=== PATIENT | female | born 1995 | race African-American/Black ===

== ENCOUNTER 2017-05-05 07:36 | Inpatient (IN) | payer BC ==
[~2017-05-05] VITALS: Ht 160 cm; Wt 96.8 kg
--- NOTE | 2017-05-05 08:04 | DIAGNOSTIC IMAGING REPORT ---
CHEST ONE VIEW PORTABLE CLINICAL HISTORY: Sepsis dyspnea COMPARISON STUDY: No previous studies for comparison. FINDINGS: The bones soft tissues and hemidiaphragms are normal. The cardiomediastinal silhouette is normal. The lungs are clear. The pulmonary vasculature is normal. IMPRESSION: Negative chest. The above report was generated using voice recognition software. It may contain grammatical, syntax or spelling errors. Electronically signed by: Brandon Ling M.D. 05/05/2017 8:02 AM Dictated Date/Time: 05/05/2017 8:02 AM
[2017-05-05 08:05] LABS: BASO % 0.2 %; BASO ABS # 0.02 K/uL (0-0.2); COMPLETE YES; EOS % 0.7 %; HEMATOCRIT 33.5 % (37-47); IG% 0.4 %; LYMPH ABS # 1.41 K/uL (1.2-3.4); MEAN CELL VOLUME 86.6 fL (80-100); MEAN CORPUSCULAR HEMOGLOBIN 28.2 pg (25-34); MEAN CORPUSCULAR HGB CONC 32.5 g/dl (32-36); MEAN PLATELET VOLUME 8.8 fL (7.4-10.4); MONO % 7.3 %; NEUT % 74.4 %; PLATELET COUNT 446 K/uL (130-400); RED BLOOD COUNT 3.87 M/uL (4.2-5.4)
[2017-05-05 08:14] LABS: PARTIAL THROMBOPLASTIN RATIO 1.4; PROTHROMBIN TIME (PATIENT) 10.7 SECONDS (9.0-12.0)
[2017-05-05] MEDS ORDERED: ONDANSETRON INJ 2 MG/ML 2 ML VIAL IV STA (08:17)
[2017-05-05] MEDS ORDERED: HYDROmorphone INJ 1 MG/ML SYR IV STA ×2 (08:17→12:27)
[2017-05-05] MEDS ORDERED: SODIUM CHLORIDE 0.9% 1000ML 1,000 ML IV STA ×3 (08:17→09:47)
[2017-05-05] MEDS ORDERED: KETOROLAC TROMETHAMINE 30 MG/ML VIAL IV STA (08:17)
[2017-05-05 08:18] LABS: ISTAT CREATININE 0.4 mg/dl; ISTAT HEMOGLOBIN 11.6 g/dl (12.0-16.0); ISTAT IONIZED CALCIUM 1.13 mmol/l
[2017-05-05 08:18] LABS: ALT/SGPT 23 U/L (12-78); BLOOD UREA NITROGEN 9 mg/dl (7-18); BUN/CREATININE RATIO 19.2 (10-20); CARBON DIOXIDE 28 mmol/L (21-32); CHLORIDE 104 mmol/L (98-107); CREATININE 0.46 mg/dl (0.60-1.20); GLUCOSE 102 mg/dl (70-99); POTASSIUM 4.1 mmol/L (3.5-5.1); SODIUM 137 mmol/L (136-145)
[2017-05-05 08:21] LABS: ALB/GLOB RATIO 0.5 (0.9-2); ALKALINE PHOSPHATASE 106 U/L (45-117); AST/SGOT 20 U/L (15-37)
--- NOTE | 2017-05-05 08:31 | EMERGENCY ROOM VISIT NOTE ---
History Report prepared by Holly: Jackson Bright Under the Supervision of: Dr. Bakari Livingston M.D. First contact with patient: 07:51 Chief Complaint: ABDOMINAL PAIN Stated Complaint: STOMACH HAS BEEN IN PAIN FOR ABOUT 2 WKS History of Present Illness The patient is a 21 year old female who presents to the Emergency Room with complaints of worsening upper abdominal pain beginning two weeks ago. The patient states she thought her discomfort was from cramps because it began when she started being sexually active. She reports her pain has worsened, she became nauseous, and her abdomen has began to harden. The patient notes her LNMP was two weeks ago, and she does not think she is . She denies a history of abdominal surgeries, using tampons, and vaginal discharge. Source of History: patient Onset: two weeks ago Position: abdomen (upper) Timing: worsening Associated Symptoms: + nausea Note: Associated symptoms: abdominal hardening Denies: vaginal discharge Review of Systems See HPI for pertinent positives & negatives. A total of 10 systems reviewed and were otherwise negative. Past Medical & Surgical Medical Problems: (1) Asthma (2) PID (acute pelvic inflammatory disease) Family History Patient reports no known family medical history. Social History Smoking Status: Never Smoker Marital Status: single Housing Status: lives with family Occupation Status: student Current/Historical Medications No Active Prescriptions or Reported Meds Allergies Coded Allergies: No Known Allergies (Unverified , 05/05/17) Physical Exam Vital Signs Date Time Temp Pulse Resp B/P (MAP) Pulse Ox O2 Delivery O2 Flow Rate FiO2 05/05/17 12:24 37.6 89 18 145/72 98 Room Air 05/05/17 11:06 108 05/05/17 10:26 98 Room Air 05/05/17 10:26 101 18 164/68 98 05/05/17 08:49 114 18 164/98 98 Room Air 05/05/17 07:41 38.2 122 17 131/84 97 Room Air Physical Exam GENERAL: Patient is a healthy-appearing well-nourished 21 year old female. HEAD: Normocephalic atraumatic EYES: Ocular movements intact pupils equal and react to light OROPHARYNX mucous membranes are moist no exudates present no erythema or edema present NECK: Supple no nuchal rigidity CHEST: Good equal expansion LUNGS: Clear and equal to auscultation CARDIAC: Normal S1 and S2 ABDOMEN: Soft, distended, diffusely tender, no guarding BACK: No CVA tenderness PELVIC: Cervix was easily friable. Mucus oozing out at the cervical os. EXTREMITIES: No pain upon palpation normal muscle strength in all groups no clubbing cyanosis or edema NEURO: Patient is following commands and answering questions appropriately. Alert and oriented x3 Cranial Nerves 2-12 grossly intact Medical Decision & Procedures ER Provider Diagnostic Interpretation: Radiology results as stated below per my review and radiologist interpretation: CHEST ONE VIEW PORTABLE CLINICAL HISTORY: Sepsis dyspnea COMPARISON STUDY: No previous studies for comparison. FINDINGS: The bones soft tissues and hemidiaphragms are normal. The cardiomediastinal silhouette is normal. The lungs are clear. The pulmonary vasculature is normal. IMPRESSION: Negative chest. The above report was generated using voice recognition software. It may contain grammatical, syntax or spelling errors. Electronically signed by: Brandon Ling M.D. 05/05/2017 8:02 AM Dictated Date/Time: 05/05/2017 8:02 AM ABD/PELVIS IV CONTRAST ONLY CT DOSE: 1045.05 mGycm HISTORY: Pain Pt c/o diffuse abd pain TECHNIQUE: Multiaxial CT images of the abdomen and pelvis were performed following the use of intravenous contrast. A dose lowering technique was utilized adhering to the principles of ALARA. COMPARISON STUDY: None. FINDINGS: Lung bases are clear. The study is severely compromised due to the absence of oral contrast. The appendix cannot be identified in its entirety. Is considered nondiagnostic for potential appendicitis. There are several mildly distended fluid-filled loops of small bowel suggesting either reactive ileus versus enteritis. There is a small amount of free fluid within the pelvic cul-de-sac. Kidneys negative for hydronephrosis. IMPRESSION: 1. Severely compromised exam due to the absence of oral contrast. 2. The appendix is not identified or evaluated diagnostically 3. Is recommended that the study be repeated with oral contrast in an attempt to identify the appendix as an independent structure. 4. Possible generalized nonobstructive enteritis The above report was generated using voice recognition software. It may contain grammatical, syntax or spelling errors. Electronically signed by: Brandon Ling M.D. 05/05/2017 9:27 AM Dictated Date/Time: 05/05/2017 9:13 AM ABD/PELVIS ORAL CONT ONLY CT DOSE: 1023.78 mGy.cm HISTORY: Pain Pt c/o diffuse abd pain TECHNIQUE: Multiaxial CT images of the abdomen and pelvis were performed following the use of oral contrast. A dose lowering technique was utilized adhering to the principles of ALARA. COMPARISON STUDY: Unenhanced 9:06 AM same date FINDINGS: Lung bases remain clear. Liver spleen and pancreas are unremarkable. The appendix is normal. It is posterior to the cecum and shows no significant thickening or periappendiceal infiltrative change. Bowel pattern shows several loops of small bowel consistent with mild fluid-filled distention and subsequent enteritis. Normal kidneys. No evidence for abscess collection or obstruction. Small amount of free fluid within the pelvic cul-de-sac which is most likely physiologic. Bladder is midline. IMPRESSION: 1. Normal appendix. 2. Findings suggesting a mild nonspecific generalized enteritis. 3. No evidence for abscess collection or obstruction. The above report was generated using voice recognition software. It may contain grammatical, syntax or spelling errors. Electronically signed by: Brandon Ling M.D. 05/05/2017 12:28 PM Dictated Date/Time: 05/05/2017 12:21 PM Laboratory Results Test 05/05/17 00:00 05/05/17 07:55 05/05/17 08:06 05/05/17 08:27 Urine Color DK YELLOW Urine Appearance CLOUDY (CLEAR) Urine pH 8.5 (4.5-7.5) Urine Specific [place] 1.029 (1.000-1.030) Urine Protein NEG (NEG) Urine Glucose (UA) NEG (NEG) Urine Ketones TRACE (NEG) Urine Occult Blood NEG (NEG) Urine Nitrite NEG (NEG) Urine Bilirubin NEG (NEG) Urine Urobilinogen POS (NEG) Urine Leukocyte Esterase TRACE (NEG) Urine WBC (Auto) 5-10 /hpf (0-5) Urine RBC (Auto) 5-10 /hpf (0-4) Urine Hyaline Casts (Auto) 5-10 /lpf (0-5) Urine Epithelial Cells (Auto) >30 /lpf (0-5) Urine Bacteria (Auto) NEG (NEG) Urine Renal Epithelial Cells /lpf (0-5) Urine Crystals TRIPLE PHOSPHATE Urine Yeast (Auto) BUDDING (NONE PRSENT) Urine Test NEG (NEG) Prothrombin Time 10.7 SECONDS (9.0-12.0) Prothromb Time International Ratio 1.0 (0.9-1.1) Activated Partial Thromboplast Time 35.7 SECONDS (21.0-31.0) Partial Thromboplastin Ratio 1.4 Bedside Hemoglobin 11.6 g/dl (12.0-16.0) Bedside Hematocrit 34 % (37-47) Bedside Sodium 140 mEq/L (135-144) Bedside Potassium 4.1 mEq/L (3.3-5.0) Bedside Chloride 102 mEq/L (101-112) Bedside Total CO2 26 mEq/l (24-31) Bedside Blood Urea Nitrogen 7 mg/dl (7-18) Bedside Creatinine 0.4 mg/dl Bedside Glucose (other) 101 mg/dl (70-99) Bedside Ionized Calcium (Kassandra) 1.13 mmol/l Bedside Lactic Acid Venous 0.90 mmol/L (0.90-1.70) Test 05/05/17 08:50 Influenza Type A (RT-PCR) Neg for Influ A (NEG) Influenza Type A Antigen Neg for Influ A (NEG) Influenza Type B Antigen Neg for Influ B (NEG) Influenza Type B (RT-PCR) Neg for Influ B (NEG) Date/Time Source Procedure Growth Status 05/05/17 12:54 Cervix Swab Trichomonas Preparation - Final Complete Labs reviewed by ED physician. Medications Administered Medications (Trade) Dose Ordered Sig/Alvaro Route Start Time Stop Time Status Last Admin Dose Admin Sodium Chloride 1,000 ml @ 999 mls/hr Q1H1M STAT IV 05/05/17 08:17 05/05/17 09:17 DC 05/05/17 10:18 999 MLS/HR Hydromorphone HCl (Dilaudid Inj) 1 mg NOW STAT IV 05/05/17 08:17 05/05/17 08:20 DC 05/05/17 08:17 1 MG Ondansetron HCl (Zofran Inj) 4 mg NOW STAT IV 05/05/17 08:17 05/05/17 08:20 DC 05/05/17 08:17 4 MG Sodium Chloride 1,000 ml @ 999 mls/hr Q1H1M STAT IV 05/05/17 08:44 05/05/17 09:44 DC 05/05/17 10:22 999 MLS/HR Ceftriaxone Sodium (Rocephin Inj) 1 gm NOW STAT IV 05/05/17 09:21 05/05/17 09:22 DC 05/05/17 11:33 1 GM Sodium Chloride 1,000 ml @ 999 mls/hr Q1H1M STAT IV 05/05/17 09:47 05/05/17 10:47 DC 05/05/17 09:47 999 MLS/HR Doxycycline Hyclate 100 mg/ Dextrose 110 ml @ 50 mls/hr NOW STAT IV 05/05/17 09:47 05/05/17 11:58 DC 05/05/17 10:24 50 MLS/HR Cefepime HCl 2000 mg/Dextrose 112.5 ml @ 200 mls/hr NOW STAT IV 05/05/17 09:47 05/05/17 10:20 DC 05/05/17 10:22 200 MLS/HR Hydromorphone HCl (Dilaudid Inj) 1 mg NOW STAT IV 05/05/17 12:27 05/05/17 12:29 DC 05/05/17 12:33 1 MG Metoclopramide HCl (Reglan Inj) 10 mg NOW STAT IV 05/05/17 12:27 05/05/17 12:29 DC 05/05/17 12:33 10 MG ECG Indication: abdominal pain Rate (beats per minute): 115 Findings: no acute ischemic change, no ectopy ED Course 0814: Past medical records reviewed. The patient was evaluated in room B10. A complete history and physical examination was performed. 0817: Ordered Ondansetron HCl 4mg IV, Hydromorphone HCl 1mg IV, Ketorolac Tromethamine 30mg IV, Sodium Chloride 1000 ml @ 999 mls/hr 0844: Ordered Sodium Chloride 1000 ml @ 999 mls/hr 0921: Ordered Ceftriaxone Sodium 1gm IV 0947: Ordered Cefepime HCl 2000mg/Dextrose 112.5 ml @ 200 mls/hr IV, Doxycycline Hyclate 100 mg/Dextrose 110 ml @ 50 mls/hr IV, Sodium Chloride 1000 ml @ 999 mls/hr 1003: I reevaluated the patient, and she is feeling better. Radiology would like a CT with oral contrast. 1215: I attempted to complete a pelvic exam, but the patient could not sit still. 1227: Ordered Metoclopramide HCl 10mg IV, Hydromorphone HCl 1mg IV 1251: I reevaluated the patient and performed a pelvic exam. Refer to the physical exam for findings. 1257: I discussed the patient's case with Alvina Tang QUANTITATIVE CONSULTANT. He will evaluate the patient for further management and care. Medical Decision Differential diagnosis: Etiologies such as appendicitis, diverticulitis, PUD, biliary pathology, UTI, pancreatitis, obstruction, mesenteric ischemia, aortic pathology, infections, inflammatory bowel disease, renal colic, as well as others were entertained. This is a 21-year-old female who presents emergency department complaining of abdominal pain that has been ongoing for the past 2 weeks. On pelvic exam the patient has a large amount of cervical mucous discharge and the cervix itself is friable and bleeding. In addition the patient meet surge criteria as she is febrile and complaining of diffuse abdominal pain. An IV was established, patient given normal saline bolus. The radiologist requested a CAT scan with oral contrast therefore the patient was rescanned. There is no acute process on her CAT scan except a mild enteritis. The patient actually felt that she was constipated. Based on the pelvic exam the patient was cultured up and started on treatment for PID. She was given normal saline bolus, Dilaudid 2. Based on the fact the patient was febrile and tachycardic she was discussed with Dr. Diane who agreed to admit the patient. Consults Time Called: 1250 Consulting Physician: Alvina Tang QUANTITATIVE CONSULTANT Returned Call: [phone] I discussed the patient's case with Alvina Tang QUANTITATIVE CONSULTANT. He will evaluate the patient for further management and care. Impression Primary Impression: Fever Additional Impression: Abdominal pain Scribe Attestation The scribe's documentation has been prepared under my direction and personally reviewed by me in its entirety. I confirm that the note above accurately reflects all work, treatment, procedures, and medical decision making performed by me. Departure Information Dispostion Being Evaluated By Hospitalist Prescriptions No Active Prescriptions or Reported Meds Referrals No Doctor, Assigned (PCP) Patient Instructions My [facility] Problem Qualifiers Primary Impression: Fever Fever type: unspecified Qualified Codes: R50.9 - Fever, unspecified Additional Impression: Abdominal pain Abdominal location: unspecified location Qualified Codes: R10.9 - Unspecified abdominal pain
[2017-05-05] MEDS ORDERED: OPTIRAY 320 IV PRN (08:45)
[2017-05-05 08:50] LABS: URINE APPEARANCE CLOUDY (CLEAR); URINE BILIRUBIN NEG (NEG); URINE COLOR DK YELLOW; URINE EPITHELIAL CELL AUTO >30 /lpf (0-5); URINE NITRITE NEG (NEG); URINE PH 8.5 (4.5-7.5); URINE SPECIFIC GRAVITY 1.029 (1.000-1.030); UROBILINOGEN POS (NEG); ZZUR CULT IF INDIC CLEAN CATCH NO
[2017-05-05 09:05] LABS: MANUAL MICROSCOPIC REQUIRED? NO; REVIEW REQ? YES; SULFASALICYLIC ACID NEG (NEG)
[2017-05-05] MEDS ORDERED: CEFTRIAXONE SOD INJ 1 GM ADDVIAL IV STA (09:21)
--- NOTE | 2017-05-05 09:29 | DIAGNOSTIC IMAGING REPORT ---
ABD/PELVIS IV CONTRAST ONLY CT DOSE: 1045.05 mGycm HISTORY: Pain Pt c/o diffuse abd pain TECHNIQUE: Multiaxial CT images of the abdomen and pelvis were performed following the use of intravenous contrast. A dose lowering technique was utilized adhering to the principles of ALARA. COMPARISON STUDY: None. FINDINGS: Lung bases are clear. The study is severely compromised due to the absence of oral contrast. The appendix cannot be identified in its entirety. Is considered nondiagnostic for potential appendicitis. There are several mildly distended fluid-filled loops of small bowel suggesting either reactive ileus versus enteritis. There is a small amount of free fluid within the pelvic cul-de-sac. Kidneys negative for hydronephrosis. IMPRESSION: 1. Severely compromised exam due to the absence of oral contrast. 2. The appendix is not identified or evaluated diagnostically 3. Is recommended that the study be repeated with oral contrast in an attempt to identify the appendix as an independent structure. 4. Possible generalized nonobstructive enteritis The above report was generated using voice recognition software. It may contain grammatical, syntax or spelling errors. Electronically signed by: Brandon Ling M.D. 05/05/2017 9:27 AM Dictated Date/Time: 05/05/2017 9:13 AM
[2017-05-05] MEDS ORDERED: CEFEPIME IV 2,000 MG in DEXTROSE 5% 100ML 100 ML IV STA (09:47)
[2017-05-05] MEDS ORDERED: DOXYCYCLINE IV 100 MG in DEXTROSE 5% 100ML 100 ML IV STA (09:47)
[2017-05-05 11:05] LABS: INFLUENZA A PCR Neg for Influ A (NEG); INFLUENZA B PCR Neg for Influ B (NEG)
[2017-05-05] MEDS ORDERED: CEFTRIAXONE SOD INJ 1 GM ADDVIAL ONE (11:29)
[2017-05-05] MEDS ORDERED: METOCLOPRAMIDE HCL INJ 5 MG/ML 2 ML VIAL IV STA (12:27)
[2017-05-05] MEDS ORDERED: HYDROmorphone INJ 1 MG/ML SYR ONE (12:29)
--- NOTE | 2017-05-05 12:29 | DIAGNOSTIC IMAGING REPORT ---
ABD/PELVIS ORAL CONT ONLY CT DOSE: 1023.78 mGy.cm HISTORY: Pain Pt c/o diffuse abd pain TECHNIQUE: Multiaxial CT images of the abdomen and pelvis were performed following the use of oral contrast. A dose lowering technique was utilized adhering to the principles of ALARA. COMPARISON STUDY: Unenhanced 9:06 AM same date FINDINGS: Lung bases remain clear. Liver spleen and pancreas are unremarkable. The appendix is normal. It is posterior to the cecum and shows no significant thickening or periappendiceal infiltrative change. Bowel pattern shows several loops of small bowel consistent with mild fluid-filled distention and subsequent enteritis. Normal kidneys. No evidence for abscess collection or obstruction. Small amount of free fluid within the pelvic cul-de-sac which is most likely physiologic. Bladder is midline. IMPRESSION: 1. Normal appendix. 2. Findings suggesting a mild nonspecific generalized enteritis. 3. No evidence for abscess collection or obstruction. The above report was generated using voice recognition software. It may contain grammatical, syntax or spelling errors. Electronically signed by: Brandon Ling M.D. 05/05/2017 12:28 PM Dictated Date/Time: 05/05/2017 12:21 PM
[2017-05-05] MEDS ORDERED: METOCLOPRAMIDE HCL INJ 5 MG/ML 2 ML VIAL ONE (12:30)
[2017-05-05 16:00] VITALS: BP 130/78; PULSE 105; TEMP 37.1; Ht 160 cm; Wt 96.8 kg
--- NOTE | 2017-05-05 17:34 | HISTORY & PHYSICAL EXAMINATION ---
DATE OF ADMISSION: 05/05/2017 HISTORY OF PRESENT ILLNESS: The patient is a 21-year-old G0 who presented to the emergency room today with abdominal and pelvic pain. The patient reports worsening abdominal and pelvic pain over the last 2 weeks. She became sexually active about a month ago and this pain has been going on for the past 2 weeks. She denies shortness of breath or chills. She does complain of some nausea, no vomiting. She also complains of some vaginal discharge. The patient was seen in the emergency room where she was evaluated. ER physician reported cervical discharge. The patient in the ER had a CT scan which was unremarkable. CT scan showed a normal appendix. There was no evidence of abscess in the pelvis. There was a small amount of fluid within the cul-de-sac. This was suspected to be physiologic. The patient's course in the ER was remarkable for the standpoint of her vitals. She one time recorded to have a temperature of 37.6, pulse as high as 114. Decision was therefore made to admit patient and treat her for possible PID. PAST MEDICAL HISTORY: The patient had history of asthma. PAST SURGICAL HISTORY: None. ALLERGIES: No known drug allergies. SOCIAL HISTORY: The patient denies tobacco, drug or alcohol use. FAMILY HISTORY: Noncontributory. PHYSICAL EXAMINATION: VITAL SIGNS: Recorded on 05/05/2017 at 1224 hours recorded temperature 37.6, pulse of 89, respiration 18, blood pressure 145/72. HEART: S1, S2, regular rhythm and rate. LUNGS: Clear to auscultation bilaterally. ABDOMEN: Nontender, nondistended. There is no guarding. There is no rebound. Pulse of some slight generalized abdominal discomfort on palpation. PELVIC: There is mild discharge. Cervix appears nulliparous. Cervix has dry clear discharge. There is minimal cervical motion tenderness. ASSESSMENT AND PLAN: A 21-year-old 0 with lower abdominal and pelvic pain. The patient has no elevated white count on CBC. CT scan is unremarkable. Of interest is the fact that patient became sexually active only a month ago and the symptoms started 2 weeks ago. Decision was therefore made to admit patient and treat her for pelvic inflammatory disease and also observe vitals. JEROME
[2017-05-05] MEDS: LACTATED RINGER'S 1000ML 1,000 ML IV SCH (17:38)
[2017-05-05] MEDS: DOXYCYCLINE HYCLATE 100 MG CAP PO SCH ×2 (18:07→21:00)
[2017-05-05] MEDS: CEFOXITIN IV 2,000 MG in DEXTROSE 5% 50ML 50 ML IV SCH (18:26)
[2017-05-05] MEDS: ACETAMINOPHEN 500 MG TAB PO SCH ×2 (18:26→22:37)
[2017-05-05 20:22] VITALS: BP 117/61; PULSE 89; TEMP 37.1
[2017-05-05 23:50] VITALS: BP 130/74; PULSE 95; TEMP 37.1; O2SAT 99
[2017-05-06] MEDS: CEFOXITIN IV 2,000 MG in DEXTROSE 5% 50ML 50 ML IV SCH ×3 (00:07→11:34)
[2017-05-06] MEDS: LACTATED RINGER'S 1000ML 1,000 ML IV SCH ×2 (02:59→08:50)
[2017-05-06 03:04] VITALS: BP 130/74; PULSE 95; TEMP 37.1; O2SAT 99
[2017-05-06 06:02] LABS: BASO % 0.3 %; BASO ABS # 0.02 K/uL (0-0.2); COMPLETE YES; EOS % 0.8 %; HEMATOCRIT 29.9 % (37-47); IG% 0.2 %; LYMPH ABS # 1.52 K/uL (1.2-3.4); MEAN CELL VOLUME 86.7 fL (80-100); MEAN CORPUSCULAR HEMOGLOBIN 27.2 pg (25-34); MEAN CORPUSCULAR HGB CONC 31.4 g/dl (32-36); MEAN PLATELET VOLUME 8.7 fL (7.4-10.4); MONO % 7.2 %; NEUT % 66.5 %; PLATELET COUNT 369 K/uL (130-400); RED BLOOD COUNT 3.45 M/uL (4.2-5.4); WHITE BLOOD COUNT 6.09 K/uL (4.8-10.8)
[2017-05-06] MEDS: ACETAMINOPHEN 500 MG TAB PO SCH (06:07)
[2017-05-06 06:39] LABS: ALT/SGPT 16 U/L (12-78); AST/SGOT 13 U/L (15-37); BUN/CREATININE RATIO 9.9 (10-20); CALCIUM 8.4 mg/dl (8.5-10.1); CARBON DIOXIDE 26 mmol/L (21-32); CHLORIDE 105 mmol/L (98-107); CREATININE 0.41 mg/dl (0.60-1.20); GLUCOSE 82 mg/dl (70-99); POTASSIUM 3.6 mmol/L (3.5-5.1); SODIUM 138 mmol/L (136-145)
[2017-05-06 06:49] LABS: ALB/GLOB RATIO 0.5 (0.9-2); ALKALINE PHOSPHATASE 83 U/L (45-117)
[2017-05-06 07:26] VITALS: BP 143/87; PULSE 101; TEMP 37.5; O2SAT 94
[2017-05-06 07:45] VITALS: O2SAT 94
[2017-05-06] MEDS: DOXYCYCLINE HYCLATE 100 MG CAP PO SCH (08:47)
--- NOTE | 2017-05-06 09:38 | Progress Note ---
Progress Note Date of Service May 06, 2017. Progress Note S; Pt doing well "feels a lot better O; VSS Ht S1S2 R/R/R Lung ; CTA bilat Abd; NT ND + BS Ext. No C/C/E a/p Abd/ Pelvic pain Pt treated for PID feeling better received 3 doses of IV Mefoxin 4th dose pending at Noon Afebrile since admission d/c home after 4th dose Mefoxin d/c home with instructions
[2017-05-06] MEDS ORDERED: DXY100 PO (09:39)
--- NOTE | 2017-05-06 09:42 | Discharge Instructions ---
Discharge Instructions Date of Service May 06, 2017. Admission Reason for Admission: PID Discharge Discharge Diagnosis / Problem: pelvic infection Discharge Goals Goal(s): Continuing PRESS MANAGER care Activity Recommendations Activity Limitations: as noted below ACTIVITY RECOMMENDATIONS: * Avoid tampons, douching, hot tubs, pools, and intercourse until bleeding has stopped. * May shower as usual. * No strenuous activity for 24-48 hours. After 24-48 hours, you may do anything you feel like doing (driving and sports are okay). SPECIAL CARE INSTRUCTIONS: Special Diet: * Take clear liquids such as tea, cola or bouillon until all nausea has subsided; you may then resume your normal diet. Special Care: * Light bleeding and vaginal spotting can last from a few days to 3-4 weeks. Call your doctor if bleeding becomes heavier than the heaviest part of your period. * Check your temperature twice a day for one week. If it goes above 100.4 degrees Fahrenheit (38.0 Celsius), notify your doctor. * Call your doctor's office for an appointment for 6 weeks after your surgery. FOLLOW-UP VISIT: Call your doctor's office for an appointment for 2 week post discharge . Current Hospital Diet Patient's current hospital diet: Regular Diet Discharge Diet Recommended Diet: Regular Diet Pending Studies Studies pending at discharge: no Medical Emergencies . Who to Call and When: Medical Emergencies: If at any time you feel your situation is an emergency, please call 911 immediately. . Non-Emergent Contact Non-Emergency issues call your: Specialist . . "Provider Documentation" section prepared by Ibrahima Diane. . VTE Core Measure Inpt VTE Proph given/why not?: Treatment not indicated
[2017-05-06 10:36] LABS: BLOOD UREA NITROGEN 4 mg/dl (7-18)
[2017-05-06 12:04] VITALS: BP 117/73; PULSE 87; TEMP 37.5; O2SAT 94
--- NOTE | 2017-05-08 07:05 | DISCHARGE SUMMARY ---
DATE OF DISCHARGE: 05/06/2017 CHIEF COMPLAINT: Abdominal and pelvic pain. HISTORY OF PRESENT ILLNESS: This is a 21-year-old G0 who presented to the Emergency Room on 05/05/2017 with abdominal and pelvic pain. The patient reported worsening pain over the last 2 weeks. She became sexually active 1 month ago and since has had pelvic pain and abdominal pain. She denies shortness of breath, chills, or fever. Fever however was documented while the patient was in the Emergency Room. She did complain of some nausea, no vomiting. She also had some vaginal discharge. The patient was seen and evaluated by the Emergency Room physician who confirmed the discharge. A CT scan was done that was unremarkable. The CT showed normal appendix, and no evidence of abscess in the pelvis. The patient was admitted and upon the above history treated for pelvic inflammatory disease. Cultures are pending. She was started on Mefoxin and doxycycline. She became afebrile in the 24 hours while she was in the hospital. Her labs and vitals have been stable. She has been discharged home and will continue with doxycycline while we wait for dependence cervical cultures. PAST MEDICAL HISTORY: The patient had history of asthma. PAST SURGICAL HISTORY: None. ALLERGIES: No known drug allergies. SOCIAL HISTORY: The patient is a smoker. Denies drug or alcohol use. The patient is a student at [employer]. FAMILY HISTORY: Noncontributory. REVIEW OF SYSTEMS: Negative except as dictated in the HPI. PHYSICAL EXAMINATION VITAL SIGNS: This morning temperature 37.5, pulse 95, respirations 20, blood pressure 143/87. HEART: S1, S2, regular rhythm and rate. LUNGS: Clear to auscultation bilaterally. ABDOMEN: Nontender, nondistended, no guarding, no rebound. EXTREMITIES: No cyanosis, clubbing or edema. CONDITION ON DISCHARGE: Stable. OPERATIONS: None. DISCHARGE DIAGNOSIS: Pelvic inflammatory disease. PLAN ON DISCHARGE: The patient is discharged home with instructions regarding activity, diet, follow-up appointment, both with the JOINT FILLER and PCP and medications.
[2017-05-09 00:42] LABS: CHLAMYDIA TRACH RNA*** DETECTED (NOT DETECTED); GC (NEIS GONORRHOEAE)RNA** NOT DETECTED (NOT DETECTED)
[2017-05-09 00:42] LABS: CHLAMYDIA TRACH RNA*** DETECTED (NOT DETECTED); GC (NEIS GONORRHOEAE)RNA** NOT DETECTED (NOT DETECTED)
== END 2017-05-06 13:10 | disposition home or self-care (01) | DRG 759 ==
LOC: C.EDB 07:37 → C.MS4N 13:22 → ENRESERV 14:57 → C.MS4N 15:39 → EDBEDREQ 05-06 01:58 → ENRESERV 05-06 02:11 → C.4E 05-06 02:52
PROVIDERS: ADMIT Obstetrics & Gynecology; ATTEND Obstetrics & Gynecology
DX: N73.9 Female pelvic inflammatory disease, unspecified (principal); J45.909 Unspecified asthma, uncomplicated

== ENCOUNTER 2017-09-20 16:37 | Emergency (ER) | payer BC, OTHER ==
[~2017-09-20] VITALS: Ht 157.5 cm; Wt 102.5 kg
[~2017-09-20 16:37] MED LIST: DXY100 PO
[2017-09-20 16:40] VITALS: Ht 157.5 cm; Wt 102.5 kg
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
[2017-09-20 18:36] VITALS: BP 142/82; PULSE 78; TEMP 37; O2SAT 98
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
== END 2017-09-20 18:38 | disposition home or self-care (01) ==
LOC: C.EDB 16:38 → C.EDD 18:38
DX: S00.81XA Abrasion of other part of head, initial encounter (principal); V49.40XA Driver injured in collision with unspecified motor vehicles in traffic accident, initial encounter; M54.9 Dorsalgia, unspecified; J45.909 Unspecified asthma, uncomplicated; F17.200 Nicotine dependence, unspecified, uncomplicated

== ENCOUNTER 2018-01-15 08:29 | Emergency (ER) | payer OTHER ==
[~2018-01-15] VITALS: Ht 157.5 cm; Wt 102.9 kg
[2018-01-15 08:34] VITALS: TEMP 36.3; Ht 157.5 cm; Wt 102.9 kg
[2018-01-15 09:52] LABS: HEMATOCRIT 35.5 % (37-47); HEMOGLOBIN 11.4 g/dL (12.0-16.0); MEAN CELL VOLUME 88.3 fL (80-100); MEAN CORPUSCULAR HEMOGLOBIN 28.4 pg (25-34); MEAN CORPUSCULAR HGB CONC 32.1 g/dl (32-36); PLATELET COUNT 349 K/uL (130-400); RED CELL DISTRIBUTION WIDTH CV 14.4 % (11.5-14.5); RED CELL DISTRIBUTION WIDTH SD 46.5 fL (36.4-46.3); WHITE BLOOD COUNT 5.12 K/uL (4.8-10.8)
[2018-01-15 10:15] LABS: BASO % 1.2 %; BASO ABS # 0.06 K/uL (0-0.2); LYMPH % 35.4 %; LYMPH ABS # 1.81 K/uL (1.2-3.4); MONO % 9.4 %; MONO ABS # 0.48 K/uL (0.11-0.59); NEUT ABS # 2.67 K/uL (1.4-6.5)
[2018-01-15 10:21] LABS: ALBUMIN 3.3 gm/dl (3.4-5.0); ALKALINE PHOSPHATASE 71 U/L (45-117); ALT/SGPT 28 U/L (12-78); AST/SGOT 25 U/L (15-37); BLOOD UREA NITROGEN 9 mg/dl (7-18); CALCIUM 8.8 mg/dl (8.5-10.1); CARBON DIOXIDE 28 mmol/L (21-32); CREATININE 0.49 mg/dl (0.60-1.20); GLUCOSE 79 mg/dl (70-99); LIPASE 43 U/L (73-393); POTASSIUM 3.9 mmol/L (3.5-5.1); SODIUM 137 mmol/L (136-145); TOTAL PROTEIN 7.6 gm/dl (6.4-8.2)
--- NOTE | 2018-01-15 11:04 | DIAGNOSTIC IMAGING REPORT ---
CHEST 2 VIEWS ROUTINE CLINICAL HISTORY: Right-sided rib pain. No recent trauma. COMPARISON STUDY: Chest radiograph May 05, 2017. FINDINGS: Lung volumes are at the lower limits of normal. There is no consolidation or evidence for pulmonary edema. Cardiomediastinal silhouette is normal. Slight elevation of the right hemidiaphragm is noted. IMPRESSION: 1. No acute cardiopulmonary findings. 2. Slight elevation of the right hemidiaphragm. Electronically signed by: Yfn Fabian M.D. 01/15/2018 11:03 AM Dictated Date/Time: 01/15/2018 11:01 AM
[2018-01-15] MEDS ORDERED: OPTIRAY 320 IV PRN (11:15)
--- NOTE | 2018-01-15 13:26 | DIAGNOSTIC IMAGING REPORT ---
CHEST CTA for PULMONARY ARTERIES CT DOSE: 517.00 mGycm HISTORY: Right rib pain. Shortness of breath. TECHNIQUE: Multiaxial CT images of the chest were performed following the intravenous administration of contrast to evaluate the pulmonary arteries. Maximal intensity projection images were also obtained. A dose lowering technique was utilized adhering to the principles of ALARA. COMPARISON STUDY: Chest 01/15/2018. FINDINGS: There is a normal caliber thoracic aorta with no evidence for dissection. There is no evidence for pulmonary embolus. No pleural effusions. No pneumothorax. The liver and spleen are unremarkable. No mediastinal or hilar lymphadenopathy. The central airways are patent. The lungs are clear. No rib fractures. IMPRESSION: No evidence for pulmonary embolus. Electronically signed by: Slade Smith M.D. 01/15/2018 1:24 PM Dictated Date/Time: 01/15/2018 1:07 PM
--- NOTE | 2018-01-15 13:43 | DIAGNOSTIC IMAGING REPORT ---
ULTRASOUND RIGHT UPPER QUADRANT ABDOMEN CLINICAL HISTORY: Right upper quadrant abdominal pain. COMPARISON STUDY: Abdominal CT dated 05/05/2017. TECHNIQUE: Real-time, grayscale, and color flow sonography of the right upper quadrant of the abdomen was performed. Images are reviewed in the transverse and longitudinal planes. FINDINGS: Liver: The liver is normal in size and echotexture. There is no intrahepatic biliary ductal dilatation. The main portal vein is patent. Gallbladder: The gallbladder is normal in appearance. No gallstones are identified. There is no gallbladder wall thickening or pericholecystic fluid. A sonographic Taveras's sign is reportedly absent. The common bile duct measures up to 0.3 cm in diameter. Pancreas: Visualized portions of the pancreatic head and body are normal in appearance. The splenic vein is patent. Right kidney: Survey images of the right kidney demonstrate normal size and echotexture. There is no hydronephrosis. Ascites: None. IMPRESSION: Unremarkable sonographic assessment of the right upper quadrant. No gallstones are identified. Electronically signed by: Zafar Lindsey M.D. 01/15/2018 1:42 PM Dictated Date/Time: 01/15/2018 1:41 PM
[2018-01-15 14:22] VITALS: BP 134/90; PULSE 70; O2SAT 99
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
== END 2018-01-15 14:55 | disposition home or self-care (01) ==
LOC: C.EDB 08:31 → C.EDC 14:55
DX: R07.81 Pleurodynia (principal); E66.9 Obesity, unspecified; F17.200 Nicotine dependence, unspecified, uncomplicated